=== PATIENT | male | born 1955 ===

== ENCOUNTER → 2018-08-11 | Outpatient (CLI) | payer OTHER ==
[~2018-08-11] MED LIST: CLOP75TA43 PO; ESOM40CA42 PO; LEVO137T22 PO
--- NOTE | 2018-08-12 15:29 | PROCEDURE NOTE ---
EVENT DATE: August 11, 2018 DIAGNOSIS Papillary carcinoma of the thyroid gland. INDICATIONS FOR PROCEDURE Patient is here to receive oral radioactive iodine-131 under supervision in Nuclear Medicine. The patient has been made appropriately hypothyroid with withdrawing his levothyroxine prior to the oral administration of iodine-131 today. He is on a low iodine diet. TSH is greater than 30. DESCRIPTION OF PROCEDURE Patient received an oral radioactive iodine dose of 94.2 mCi I-131. This was under direct supervision. The procedure was also witnessed by Dr. Cueto, who is being supervised to administer iodine-131 at a later date on the [facility] license. PLAN Prior to administration, the patient had signed the informed consent form, recognizing the indications for treatment, potential side effects, and therapeutic alternatives. A portion of the radiation precaution education was performed by Nicolle Redman, nuclear plant equipment operator at [facility]. Nicolle Redman assisted with the procedure today. Contact isolation was reviewed. Patient was informed to contact me directly or via the Cancer Center staff if he has any adverse effects. He will be placed on replacement levothyroxine 72 hours from now. His TSH was not in the appropriate range for a cancer patient at a prior visit on 137 mcg q. day, and subsequently the iodine- 131 was increased to 175 mcg q. day, and his TSH, free T4, and thyroglobulin tumor marker will be repeated in five to six weeks. The patient will also undergo a baseline CT scan of neck and thorax with contrast at five to six weeks to complete his staging and to serve as baseline going forward for appropriately selected thyroid carcinoma patient. cc: Dr. Javad RIVERA
== END ==
LOC: RAD 07:39
PROVIDERS: ATTEND Radiology Radiation Oncology
DX: C73 Malignant neoplasm of thyroid gland (principal)
CPT/HCPCS: 79005; A9517; A9528

== ENCOUNTER 2018-09-19 09:58 | Outpatient (RCR) | payer OTHER ==
[2018-07-22 09:53] VITALS: BP 128/85
--- NOTE | 2018-07-22 13:06 | ONCOLOGY CONSULTATION ---
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 STAGE: T1b at 2 cm with 6 mm positiivity at margin (microspically), N0, MX HISTORY OF PRESENT ILLNESS This is a 63-year old gentleman who is referred to me for iodine-[address] Farnsworth, and his surgeon, Dr. Gaudencio Aragon. The patient presented in April of this year with palpable abnormality of the thyroid gland. He underwent further assessment with thyroid ultrasound, which demonstrated a 1.9 cm mass in the left isthmus, which has increased in size compared to a prior study in 2017. The patient was advised to undergo further evaluation. The thyroid ultrasound study was obtained in [place] on May 04, 2018. The isthmus contained an exophytic nodule just to the left of midline measuring 1.5 x 1.9 x 1.0 cm. Fine needle aspiration was advised and subsequently performed. Biopsy was then obtained on May 25, 2017 by the [facility]. Patient was then referred to Dr. Aragon, who performed total thyroidectomy on June 21, 2018. He was found to have a 2 cm papillary carcinoma of the thyroid gland. Margins appear to be involved; it has 6 mm of positivity. No anterior lymphatic invasion. No lymphatic invasion. No gross extrathyroidal extension noted. Two lymph nodes were examined at the time of procedure, which were listed at level 6 lymph nodes and both negative. Patient was staged as pathologic T1b N0. He has been advised to undergo iodine- 131 therapy as an adjunct to surgery due to the positive microscopic margins. No family history of thyroid carcinoma or prior neck radiation. He did have some exposure to toxic agent when stationed in the in [place] by his report. Following surgery, the patient has done well. He does have an intermittent pressure sensation in his throat, although he has had similar symptoms dating back to a C-spine surgery with a fusion. The pressure sensation has improved, however, after the patient was re-started on Plavix as well as replacement Synthroid at 137 mcg q.d. No significant hoarseness. I should mention here that the Plavix was actually effective in decreasing double vision episodes. He has had no double vision for the last four weeks. Apparently, he is being evaluated for potential ocular migraines. Patient denies any bone pain. No respiratory symptoms at this time. He is quite active. CURRENT MEDICATIONS 1. Plavix 75 mg a day. 2. Synthroid 137 mcg q. day. 3. Nexium 40 mg a day. PAST MEDICAL HISTORY 1. Thyroid carcinoma with history listed above. 2. History of subclinical hypothyroidism, diagnosed in 2011. 3. CVA. 4. PFO with surgical closure. 5. DJD. 6. Bradycardia. 7. Coronary artery disease. 8. Right bundle branch block. 9. GERD. 10. Obstructive sleep apnea. 11. Raynaud's disease. PAST SURGICAL HISTORY 1. Total thyroidectomy, June 21, 2018. 2. C3-4 anterior diskectomy and fusion, July 24, 2016. 3. Foramen ovale closure, February 2017. 4. Tonsillectomy, 1957. 5. Umbilical granuloma excision, 1989. SOCIAL HISTORY Patient is . He is accompanied by his spouse today. Three children, ages 27, 33 and 35. 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 His spouse's name is Samantha Campbell. REVIEW OF SYSTEMS Notable for cough with increased phlegm. Occasional muscle pain. FAMILY HISTORY Notable for clotting disorder on his father's side, heart disease and cerebrovascular disease. His mother had prior stroke. Brother also had a stroke and heart disease. Patient is a nonsmoker. Does not use smokeless tobacco. PHYSICAL EXAMINATION GENERAL: Pleasant 63-year old male. VITAL SIGNS: Weight 187 pounds, height 72 inches, blood pressure 126/85, pulse 48, respirations 12. NECK: No palpable lymphadenopathy in the neck. Well-healed midline incision. Expected numbness above the incision. LUNGS: Clear bilaterally. HEART: Regular. ABDOMEN: No gross organomegaly, mass or tenderness today. EXTREMITIES: No edema or cyanosis. NEUROLOGIC: Grossly intact. IMPRESSION This is a very interesting gentleman. Essentially, we have a 63-year old male who is found to have an enlarging mass in the neck of serial imaging by ultrasound. This was a highly suspicious lesion involving the left isthmus and pathologically measured 2.0 cm. This is unifocal with positive margin microscopically. The pathologist comments that the length of microscopic margin involvement is 6 mm. Two lymph nodes were also examined at the time of surgery and were both negative. No gross residual disease noted. RECOMMENDATIONS Based on the pathologic features of this malignancy, I would advise the patient to proceed with iodine-131 therapy. He does appear to have a clinically significant malignancy and, therefore, I would favor slightly higher dose of iodine-131 therapy back to the adjunct dosage of 100 millicuries. There is ongoing controversy regarding the exact dosage and so recommendations are 2A at this time in the guidelines. 30-50 millicurries is used with low or std risk thy I would favor inducing hypothyroid state for this gentleman by taking him off his replacement medication. I suspect within two to six weeks the patient would become hypothyroid with a target TSH of 30, at which point we would order in the iodine-131 therapy, which will be administered in the Nuclear Medicine Department at [facility]. The indications for treatment and potential adverse effects were reviewed with the patient and spouse today. He will meet with our nuclear medicine therapist (Nicolle) later this morning and review initial diet as well as the radiation safety precautions and procedure details. The patient will have a weekly TSH drawn in [place] on and the results will be faxed to us at the center. He will undergo radiation precautions for five days following the procedure. He intends to stay in a cabin that his family owns. Appropriate laboratory studies have been performed by his other providers with detailed notes provided by Dr. Farnsworth regarding his target values following surgery along with replacement medication. Patient has an appointment to see his surgeon next week for postoperative visit and he also has appointments to see endocrinology in approximately 10 to 12 weeks. All questions were answered to the patient's satisfaction today. He will re- start replacement medication 72 hours after the iodine-131 therapy. Thank you for the referral and excellent records which accompanied the patient today for initial assessment. A followup note will be dictated when the patient receives the oral iodine-131 administration. NICOLE
[~2018-09-19 09:58] MED LIST changes: -IOPAMIDOL 76% 100 ML INFUS BTL 100 ML ONE; -LEVO-3 PO
[2018-09-19 10:11] VITALS: BP 121/75
[2018-09-19 10:42] LABS: PLATELET COUNT, AUTOMATED 171 K/uL (150-450)
[2018-09-27] MEDS ORDERED: LEVO-3 PO (13:26)
--- NOTE | 2018-10-04 23:40 | ONCOLOGY FOLLOW UP NOTE ---
EVENT DATE: September 27, 2018 CHIEF COMPLAINT/REASON FOR EVALUATION Papillary carcinoma of the thyroid gland. Patient is here to go over updated laboratory studies and radiographic studies. Patient also complains of sore throat. ONCOLOGY HISTORY 1. Papillary carcinoma of the thyroid gland, status post total thyroidectomy 06/21/18. Capsular margin appeared to be involved for a distance of 6 mm. No LVI. Two lymph nodes examined at the time of procedure, which were negative for carcinoma. Patient referred for iodine-131 therapy as adjunct to surgery. Pathologic T1b N0. 2. Patient received iodine-131 at [facility] under my direction. HISTORY OF PRESENT ILLNESS Patient was back in the oncology clinic for a followup appointment today. Overall, he seems to be doing fairly well. He is on replacement levothyroxine at 175 mcg daily. His main complaint has been a sore throat. He had a sore throat initially two weeks ago and was seen by his primary care provider and started on antibiotics, and then subsequently the sore throat cleared. He is now having some recurrent symptoms, however. He also has considerable allergies during the summer. Patient denies any respiratory complaints or bone pain. No recent weight loss. Laboratory studies were reviewed at this visit, along with a CT scan of the thorax. No signs of pulmonary metastatic disease, and the baseline study of the neck is unremarkable. Metabolic panel is normal. Calcium is 9.2. TSH is 0.24, free T4 of 1.68. Thyroglobulin tumor marker is 0.1. CBC is normal. No antibodies present. The CT scan of the thorax with contrast was obtained on 09/19/18. There were some minor ground-glass opacities in the inferior aspect of the right middle lobe and lingula, most likely representing some scarring, also a 5 mm noncalcified nodule in the posteromedial right lower lobe. No enlarged lymph nodes. Radiologist advised followup at a later date on the [address] scan of the neck was also obtained on 09/19/18. Postsurgical changes. He does have some fusion hardware at C3-C4, moderate to severe C6-C7 disk space degeneration. CURRENT MEDICATIONS 1. Plavix 75 mg a day. 2. Synthroid 137 mcg q. day. 3. Nexium 40 mg a day. PAST MEDICAL HISTORY 1. Thyroid carcinoma with history listed above. 2. History of subclinical hypothyroidism, diagnosed in 2011. 3. CVA. 4. PFO with surgical closure. 5. DJD. 6. Bradycardia. 7. Coronary artery disease. 8. Right bundle branch block. 9. GERD. 10. Obstructive sleep apnea. 11. Raynaud disease. PAST SURGICAL HISTORY 1. Total thyroidectomy, June 21, 2018. 2. C3-C4 anterior diskectomy and fusion, July 24, 2016. 3. Foramen ovale closure, February 2017. 4. Tonsillectomy, 1957. 5. Umbilical granuloma excision, 1989. SOCIAL HISTORY Patient is . He is accompanied by his spouse today. Three children, ages 27, 33 and 35. 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 His spouse's name is Samantha Campbell. REVIEW OF SYSTEMS Notable for the throat pain. PHYSICAL EXAMINATION GENERAL: A pleasant 63-year-old male. VITAL SIGNS: In [employer] EMR. HEENT: Intraoral inspection reveals no obvious exudates or erythema. LYMPHATIC: No palpable lymphadenopathy. LUNGS: Clear bilaterally. HEART: Sounds regular. ABDOMEN: Soft. No gross organomegaly. Due to symptomatology and discomfort that the patient is describing in his throat (located lower in the neck, about the level of the vocal cords), I elected to perform a fiberoptic exam. Topical anesthesia was used in the right naris. Fiberoptic scope was then introduced with direct inspection of the nasopharynx, posterior oropharynx, and subsequently the supraglottic larynx. Vocal cords moved symmetrically. Epiglottis was smooth. No signs of thrush. No significant lesions were visible. Scope was then withdrawn. IMPRESSION 1. Papillary carcinoma of the thyroid gland. Status post appropriate surgery and iodine-131 therapy. Thyroglobulin tumor marker is well suppressed at 0.1 ng/mL. 2. TSH at 0.24. Patient will follow up with Dr. Farnsworth later today to determine medication adjustments on his levothyroxine. 3. Throat pain, etiology unclear, most likely related to reflux or allergies with sinus drainage. All questions were answered to the patient's satisfaction. He will be released from the radiation oncology clinic at this time. NICOLE
== END 2018-10-05 13:27 | disposition home or self-care (01) ==
LOC: SPU 09:58
PROVIDERS: ATTEND Radiology Radiation Oncology
DX: C73 Malignant neoplasm of thyroid gland (principal); R07.0 Pain in throat; E89.0 Postprocedural hypothyroidism
CPT/HCPCS: 82040; 82247; 82310; 82374; 82435; 82565; 82947; 84075; 84132; 84155; 84295; 84432; 84439; 84443; 84450; 84460; 84520; 85025; 86800

== ENCOUNTER → 2018-09-19 | Outpatient (CLI) | payer OTHER ==
[~2018-09-19] MED LIST changes: +IOPAMIDOL 76% 100 ML INFUS BTL 100 ML ONE; +LEVO-3 PO
--- NOTE | 2018-09-19 14:07 | RADIOLOGY IMAGING REPORT ---
FACILITY: [facility] [place] PATIENT NAME: Freddy Campbell : 1955 MR: [id number] V: [id number] EXAM DATE: ORDERING PHYSICIAN: MARCIO CHUN TECHNOLOGIST: Location: [facility] [place] Patient: Freddy Campbell : 1955 Visit/Account:[id number] Date of Sevice: 09/19/2018 EXAMINATION: CT neck with IV contrast HISTORY: Thyroid cancer TECHNIQUE: CT was obtained through the neck following IV contrast administration. Sagittal and co traci reformatted images were generated. 75 mL of IV Isovue-370 injected. One of the following dose optimization techniques was utilized in the performance of this exam: autom ated exposure control; adjustment of the mA and/or kV according to patient size; or use of iterative reconstruction technique. Specific details can be referenced in the facility's radiology CT exam ope rational policy. COMPARISON: None. FINDINGS: Parotid/submandibular and thyroid glands: Absent thyroid gland, otherwise unremarkable. Pharyngeal and retropharyngeal soft tissues: Normal. Oral cavity and manager family space soft tissues: Normal. Larynx/glottis and airway: Normal. Lymph nodes: Normal. Vessels: No significant finding. Visualized orbits / brain: No significant finding. Upper chest: Normal. Bones/sinuses/mastoid air cells: Multilevel degenerative cervical foraminal narrowing. Trace to smal l volume bilateral maxillary sinus secretions. Mild left maxillary sinus mucosal thickening. Anteri or fusion hardware at C3 and C4 C3-4 disc space prosthesis. Moderate to severe C6-7 disc space degen eration. IMPRESSION: 1. Absent thyroid gland. No evidence of disease recurrence in the thyroid postsurgical bed. 2. No neck mass or adenopathy. 3. Trace to small volume bilateral maxillary sinus fluid. Report Dictated By: Remi Cooney MD at 09/19/2018 1:53 PM Report E-Signed By: Remi Cooney MD at 09/19/2018 2:01 PM WSN:[id number]
--- NOTE | 2018-09-19 14:25 | RADIOLOGY IMAGING REPORT ---
FACILITY: [facility] PATIENT NAME: Freddy Campbell : 1955 MR: [id number] V: [id number] EXAM DATE: ORDERING PHYSICIAN: MARCIO CHUN TECHNOLOGIST: Location: [facility] [place] Patient: Freddy Campbell : 1955 Visit/Account:[id number] Date of Sevice: 09/19/2018 CT CHEST (CONTRAST) History: Thyroid cancer TECHNIQUE: Contiguous axial images were performed through the chest to the level of the adrenal gla nds following the administration of IV contrast. Coronal and sagittal reformatting was also perform ed.Dose Lowering Technique One of the following dose optimization techniques was utilized in the performance of this exam: Autom ated exposure control; adjustment of the mA and/or kV according to the patient's size; or use of an i terative reconstruction technique. Specific details can be referenced in the facility's radiology C T exam operational policy. Contrast: 75 mL Isovue-370 COMPARISON STUDIES: CT of the neck performed today. Lungs / Pleura: Septal thickening and mild groundglass opacities in the inferior most aspect right middle lobe and lingula may represent scarring. Acute infiltrates are less likely. There are mild d ependent changes in the lower lung hurley There is there is a 5 mm noncalcified nodule posterior medial right lower lobe best appreciated on im age 89 of series 4 Mediastinum/nodes: No pathologically enlarged hilar mediastinal lymph nodes are identified Heart and vessels: negative. Musculoskeletal / Body wall: Mild scoliosis of the thoracic spine Upper abdomen: Visualized abdominal viscera negative. IMPRESSION: There is septal thickening and mild groundglass opacities in the inferior most aspect of the right mi ddle lobe and lingula which may represent scarring. Acute infiltrates or less likely Mild dependent changes in lower lung hurley There is a single 5 mm noncalcified nodule posterior aspect the right lower lobe. This may be nonspe cific however given the clinical history of thyroid cancer short-term interval follow-up is recommend ed Report Dictated By: Diana Cueto MD at 09/19/2018 2:09 PM Report E-Signed By: Diana Cueto MD at 09/19/2018 2:18 PM WSN:[email or web address]
== END ==
LOC: CT
PROVIDERS: ATTEND Radiology Radiation Oncology
DX: R91.1 Solitary pulmonary nodule (principal); Z90.89 Acquired absence of other organs
CPT/HCPCS: 70491; 71260; Q9967